=== PATIENT | male | born 1965 | race Caucasian/White ===

== ENCOUNTER 2023-12-22 18:24 | Emergency (ER) | payer OTHER ==
[2023-12-22 18:53] VITALS: BP 187/108; PULSE 80; RESP 18; TEMP 99.3; O2SAT 98
[2023-12-22] MEDS ORDERED: XYLOCAINE 1%-EPI 1:100,000 ONE (18:54)
[2023-12-22 19:30] VITALS: BP 127/68; PULSE 81; RESP 18; TEMP 99.3; O2SAT 98
[2023-12-22] MEDS ORDERED: CIPR7.5D7 EACH EAR (19:55)
[2023-12-22] MEDS ORDERED: TORADOL ONE (20:00)
[2023-12-22] MEDS ORDERED: ROCEPHIN ONE (20:00)
[2023-12-22] MEDS ORDERED: LIDOCAINE 1% VIAL ONE (20:00)
[2023-12-22] MEDS: ROCEPHIN IM STA (20:10)
[2023-12-22] MEDS: TORADOL IM STA (20:11)
[2023-12-22 20:13] VITALS: BP 139/67; PULSE 83; RESP 18; TEMP 99.3; O2SAT 98
== END 2023-12-22 20:19 | disposition home or self-care (01) ==
LOC: ER 18:24
DX: L02.31 Cutaneous abscess of buttock (principal); H60.91 Unspecified otitis externa, right ear; I10 Essential (primary) hypertension; E07.9 Disorder of thyroid, unspecified; Z90.49 Acquired absence of other specified parts of digestive tract; Z90.89 Acquired absence of other organs; Z88.2 Allergy status to sulfonamides
CPT/HCPCS: 96372; 10060; 99284; J2001; J0696; J1885